=== PATIENT | male | born 1965 | race Caucasian/White ===

== ENCOUNTER 2021-10-03 15:58 | Inpatient (IN) | payer OTHER ==
[~2021-10-03] VITALS: Ht 170.2 cm; Wt 81.6 kg
[2021-10-03] MEDS ORDERED: ZESTRIL2.5 MG (16:11)
[2021-10-03] MEDS ORDERED: HUMALOG JU100 UNIT/1 (16:11)
[2021-10-03] MEDS ORDERED: ATORVASTATIN CA10 MG (16:11)
--- NOTE | 2021-10-03 16:13 | NUR ---
PTE ALERTA Y ORIENTADO X 3 ESFERAS QUIEN REFIERE DOLOR ABDOMINAL Y VOMITOS X7 DESDE LA 1PM.
--- NOTE | 2021-10-03 17:08 | NUR ---
PTE EVALUADO POR MD [place] [facility]. SE EJECUTAN ORDENES BAJO MEDIDAS ACEPTICAS. PTE PEND A RESULTADOS DE LAB.
--- NOTE | 2021-10-04 07:37 | NUR ---
SE RECIBE PTE ALERTO Y ORIENTADO X3, ACOMPANADO DE FAMILIAR. SE OBSERVA IV PATENTE EN MANO DERECHO CON ANGIO #20, AREA CHITRA DE EDEMA Y ERITEMA, BAJANDO R/L @120ML/HR. TIENE PENDIENTE CONSULTA CON CIRUGIA POR COLECISTITIS. SE MANTIENE RADHA EN NIVEL MAS BAJO Y BARANDAS ELEVADOS, POR PRECAUCION. SE MANTIENE EN OBSERVACION.
--- NOTE | 2021-10-04 15:23 | NUR ---
PACIENTE ALERTA Y ORIENTADO X3 EN RADHA CON LAS BARANDAS ELEVADAS. PACIENTE CANALIZADO AREA CHITRA DE EDEMA Y DE ENROJECIMIENTO. PACIENTE EN ESPERA DE CONSULTAS CON DR. JUDITH POLLARD. SE MANTIENE BAJO OBSERVACION POR CAMBIOS LEWIS TURNO.
== END 2021-10-07 18:43 | disposition home or self-care (01) | DRG 446 ==
LOC: ER 15:58 → SURH 10-04 21:32
PROVIDERS: ADMIT Internal Medicine; ATTEND Internal Medicine
PROC: BW40ZZZ Ultrasonography of Abdomen (ICD-10-PCS; principal; 2021-10-03)
PROC: BW2110Z Computerized Tomography (CT Scan) of Abdomen and Pelvis using Low Osmolar Contrast, Unenhanced and Enhanced (ICD-10-PCS; 2021-10-04)
PROC: CF241ZZ Tomographic (Tomo) Nuclear Medicine Imaging of Gallbladder using Technetium 99m (Tc-99m) (ICD-10-PCS; 2021-10-06)
DX: K81.1 Chronic cholecystitis (principal); E11.9 Type 2 diabetes mellitus without complications; I10 Essential (primary) hypertension; E78.49 Other hyperlipidemia; Z20.822 Contact with and (suspected) exposure to COVID-19; Z79.4 Long term (current) use of insulin